=== PATIENT | female | born 1990 | race Caucasian/White ===

== ENCOUNTER → 2020-07-19 | Outpatient (CLI) | payer BC, OTHER | LOC: US 07-12 09:30 | DX: R74.8 Abnormal levels of other serum enzymes (principal); R93.2 Abnormal findings on diagnostic imaging of liver and biliary tract | CPT/HCPCS: 76705 ==

== ENCOUNTER 2021-01-21 16:30 | Inpatient (IN) | payer BC ==
[~2021-01-21] VITALS: Ht 167.6 cm; Wt 131.5 kg
[2021-01-21 17:15] LABS: HEMOGLOBIN 11.9 gm/dl (12.3-15.3); RED BLOOD COUNT 4.08 M/UL (4.00-5.10); WHITE BLOOD COUNT 12.2 K/UL (4.5-11.0)
[2021-01-21] MEDS ORDERED: PEPCID20 MG PO (17:52)
[2021-01-21] MEDS ORDERED: LABETALOL HCL100 MG PO (17:52)
[2021-01-23 06:49] LABS: HEMOGLOBIN 10.5 gm/dl (12.3-15.3)
[2021-01-24] MEDS ORDERED: PERCOCET 5/325 T1 EA PO (15:47)
[2021-01-24] MEDS ORDERED: IBUPROFEN800 MG PO (15:47)
[2021-01-24] MEDS ORDERED: SOF-LAX100 MG PO (15:47)
== END 2021-01-24 16:38 | disposition home or self-care (01) | DRG 788 ==
LOC: GENOP 16:30 → OB 16:47
PROVIDERS: ADMIT Obstetrics & Gynecology
PROC: 10D00Z1 Extraction of Products of Conception, Low, Open Approach (ICD-10-PCS; principal; 2021-01-21)
PROC: 3E033VJ Introduction of Other Hormone into Peripheral Vein, Percutaneous Approach (ICD-10-PCS; 2021-01-21)
DX: O10.92 Unspecified pre-existing hypertension complicating childbirth (principal); Z37.0 Single live birth; Z3A.37 37 weeks gestation of pregnancy; Z20.822 Contact with and (suspected) exposure to COVID-19; O99.214 Obesity complicating childbirth; E66.01 Morbid (severe) obesity due to excess calories; O76 Abnormality in fetal heart rate and rhythm complicating labor and delivery
CPT/HCPCS: 36415; 81001; 82800; 83518; 85014; 85018; 85025; C9113; J0456; J0690; J1170; J1650; J2274; J2405; J2590; J2795; J7030; J7120; U0002